=== PATIENT | male | born 1960 | race Native Hawaiian/Other Pacific Islander ===

== ENCOUNTER 2022-07-22 11:53 | Outpatient (CLI) | payer OTHER | END 2022-07-22 19:05 | disposition home or self-care (01) | LOC: LABW 11:53 | PROVIDERS: ATTEND Nurse Practitioner Acute Care | DX: D64.9 Anemia, unspecified (principal) | CPT/HCPCS: 36415; 82607; 82728; 82746; 83540; 83550 ==

== ENCOUNTER 2022-08-27 09:56 | Outpatient (CLI) | payer OTHER | END 2022-08-27 20:28 | disposition home or self-care (01) | LOC: RESP 09:56 | PROVIDERS: ATTEND Nurse Practitioner Acute Care | DX: R22.1 Localized swelling, mass and lump, neck (principal); Z79.899 Other long term (current) drug therapy ==

== ENCOUNTER 2023-03-07 11:42 | Outpatient (CLI) | payer OTHER | END 2023-03-07 19:19 | disposition home or self-care (01) | LOC: CT 11:42 | PROVIDERS: ATTEND Nurse Practitioner Acute Care | DX: Z86.79 Personal history of other diseases of the circulatory system (principal); R55 Syncope and collapse ==